=== PATIENT | male | born 1940 | race Caucasian/White ===

== ENCOUNTER 2016-05-20 11:27 | Emergency (ER) | payer OTHER ==
--- NOTE | 2016-05-20 12:20 | DIAGNOSTIC IMAGING REPORT ---
PROCEDURE: XR WRIST MIN 3 VIEWS - RIGHT INDICATION: TRAUMA/INJURY TECHNIQUE: Five views. COMPARISON: None. FINDINGS: Findings suggest post-traumatic change of the right distal radius and ulna. 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 Findings suggest avulsion fractures (4 mm, 1 mm) of the dorsum of the triquetrum. IMPRESSION: 1. 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 2. Findings suggest acute avulsion fractures of the dorsal triquetrum (best seen on lateral view).
--- NOTE | 2016-05-20 12:23 | ED CLINICAL REPORT ---
Clinical Report - Physicians/Mid Levels [facility] [address] [place] [place] [address] 05/20/2016 11:30 Patient: MARÍA DOTSON Time Seen: 11:56 May 20 2016. Arrived- By private vehicle. Historian- patient. HISTORY OF PRESENT ILLNESS Chief Complaint: Injury to the right wrist. The injury happened yesterday. The patient sustained a direct blow. Occurred at home. Pain is not mild. Patient denies injury to the head. ( A trip and fall mechanism yesterday, with pain to the right wrist. Reports difficulty with movement of the hand. It was possible fracture to the area, however never had it checked out. Reports taking pain meds for chornic pain. NO paresthesias, no laceratin.). REVIEW OF SYSTEMS No tingling or skin laceration. All systems otherwise negative, except as recorded above. PAST HISTORY The patient's dominant hand is the right. He has had a prior injury once to the same area (possible prior fx.). Problems: Chronic Back Pain. Hypercholesterolemia. Hypertension. Medications: Atorvastatin Calcium Oral. Lisinopril Oral. Morphine Sulfate Oral (Tablet 15 mg), 2x a day as needed. Oxycodone-Acetaminophen Oral. Allergies: No Known Drug Allergy. SOCIAL HISTORY Smoker- current status unknown. No drug use. ADDITIONAL NOTES The nursing notes have been reviewed. PHYSICAL EXAM Vital Signs: 05/20/2016 11:48 BP: 157/97. HR: 66. RR: 20. O2 saturation: 99%. Temp: 98.1 F. Pain level now: 6/10. Head: Head atraumatic. ENT: Ears normal. Nose normal. Neck: Normal inspection. CVS: Normal heart rate and rhythm. Heart sounds normal. Respiratory: No respiratory distress. Skin: Skin warm. Skin intact. Extremities: Anatomic snuffbox, right arm: No erythema or tenderness. Right distal radius: moderate swelling. No tenderness, abrasion or puncture wound. Right distal ulna: mild tenderness and swelling. Limited ROM at the wrist (diminished ulnar deviation). Neurovascular intact distally. Right hand. No tenderness or swelling. Bony tenderness present. No signs of infection present. No hand injury. Neuro, Vascular and Tendons: Vascular status intact. Motor intact. Neuro: Oriented X 3. LABS, X-RAYS, AND EKG Rt Wrist X-ray: (IMPRESSION: 1. 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 2. Findings suggest acute avulsion fractures of the dorsal triquetrum (best seen on lateral view). Electronically Final signed by:Cedric Kline MD 05/20/2016 12:19:16 PM). PROGRESS AND PROCEDURES Splint Application: Time: 12:45 May 20 2016. Fiberglass sugar tong splint applied to right hand. Splint applied by nurse with direct supervision by me. Follow-up recommended within 5 days. Course of Care: concern for acute fracture, patient splinted, good distal neurovascular. His pain essentially on ulnar on the dorsal aspect, S sign on the radial aspect on the dorsal side, which he reports is chronic. Pain with ulnar deviation. Patient stable, no laceration or underlying ecchymosis. Patient is stable. Physical exam findings are improved. Symptoms better. Patient/family counseled. Disposition: Discharged. CLINICAL IMPRESSION Fracture of the right ulna INSTRUCTIONS Limit use of your right hand for seven. ([facility]: [phone]). Your Current Medications: CONTINUE TAKING THE FOLLOWING MEDICATIONS: Atorvastatin Calcium Oral. Lisinopril Oral. Morphine Sulfate Oral : Tablet 15 mg, 2x a day, prn. Oxycodone-Acetaminophen Oral. OTC Medications: Take OTC medications according to label instructions. Available over the counter. Acetaminophen (available over the counter): take according to label instructions. Motrin (available over the counter): take according to label instructions. Follow-up: Follow up with your doctor in three days. (Electronically signed by Niesha Hawkins P.A.-C 05/20/2016 13:01)
--- NOTE | 2016-05-20 12:23 | ED NURSING NOTES ---
Clinical Report - Nurses [place] [address] [address] 05/20/2016 11:30 Patient: MARÍA DOTSON TRIAGE Acuity: LEVEL 3. Chief Complaint: INJURY TO RIGHT WRIST. Alert. No acute distress. KEYONA COMA SCORE: [place] Coma Scale: 15- eyes open spontaneously (4); best verbal response- oriented x 4 (5); best motor response- obeys commands (6). --11:54 Jeana Durham R.N. 11:48 05/20/16. BP: 157/97. HR: 66. RR: 20. O2 saturation: 99% on room air. Temp: 98.1 F. Pain level now: 10/06. --11:54 Jeana Durham R.N. Weight: 68.9 kg stated. Height/Length: 67 inches Per Patient. BMI: 23.8. --11:53 Jeana Durham R.N. Medications Oxycodone-Acetaminophen Oral. --11:51 Jeana Durham R.N. Morphine Sulfate Oral (Tablet 15 mg), 2x a day as needed. --11:51 Jeana Durham R.N. Lisinopril Oral. --11:51 Jeana Durham R.N. Atorvastatin Calcium Oral. --11:51 Jeana Durham R.N. Medication/allergy information source: the patient. --11:54 Jeana Durham R.N. Allergies No Known Drug Allergy. --11:52 Jeana Durham R.N. History Arrived by private vehicle. Historian: patient. Accompanied by spouse. Primary physician (Jono). This occurred yesterday. Mechanism of injury: fell; tripped. SOCIAL HX: Current every day heavy tobacco smoker (cigarette)- less than 1 pack per day. No alcohol use or drug use. NUTRITIONAL RISK ASSESSMENT: The nutritional risk assessment revealed no deficiencies. FUNCTIONAL ASSESSMENT: Functional assessment: no impairments noted. LEARNING NEEDS ASSESSMENT: The learning needs assessment revealed no barriers. FALL RISK ASSESSMENT: Fall risk assessment completed. Risk factors identified include patient age greater than 65 years and history of fall. Fall interventions initiated. Patient placed on stretcher. Brakes on Bed in low position. SKIN INTEGRITY ASSESSMENT: Skin integrity risk assessment completed. No skin integrity risk identified. --11:54 Jeana Durham R.N. PROBLEMS: Chronic Back Pain. Hypertension. Hypercholesterolemia. --11:52 Jeana Durham R.N. Assessment GENERAL / NEURO / PSYCH: Alert. Oriented X 4. Appears in no acute distress. Patient appears calm and cooperative. RESPIRATORY: Respirations not labored. CVS: Capillary refill less than 2 seconds. SKIN: Mucous membranes are pink. Skin is warm and dry. --11:54 Jeana Durham R.N. Interventions ID band on patient. To treatment room. --11:54 Jeana Durham R.N. PHYSICAL ASSESSMENT 11:54 05/20/16. Ambulatory to room. GENERAL / NEURO / PSYCH: Oriented X 4. Alert. Appears in no acute distress. EXTREMITIES: Capillary refill is less than 2 seconds in the extremities. Extremity pulses are within normal limits. Neuro-vascular status intact to the extremity. Right wrist: tenderness, swelling and erythema. SKIN: Skin intact. Skin is warm and dry. --11:54 Jeana Durham R.N. NURSING PROGRESS NOTES 11:54 05/20/16. Two patient identifiers checked. Call light placed in reach. Side rails up x 1. Bed placed in lowest position. Brakes of bed on. Patient ready for evaluation- chart flagged and ED physician notified. --11:55 Jeana Durham R.N. 12:38 05/20/16. Sugar tong fiberglass upper extremity splint applied to right arm and elbow by nurse. Distal pulses intact, sensation intact and motor within normal limits. --12:38 Whitney Sy R.N. 12:38 05/20/16. Sling applied to right arm. --12:38 Whitney Sy R.N. DISPOSITION / DISCHARGE Departure time: 1244May 20 2016. Condition at departure: improved and stable. No learning barriers present. Discharge instructions provided and reviewed with the patient. Reviewed splint care instructions. Activity restrictions (minimal use of injured extremity) reviewed. Follow up contact number Pb Jones. Patient verbalized understanding. Written instructions provided in Trinidadian. The patient was discharged by the physician residential real estate assistant. He was discharged home and accompanied by spouse. He left the Emergency Department ambulatory and via private vehicle. Spouse driving. --14:07 Jeana Durham R.N. Locked/Released at 05/20/2016 14:07 by Jeana Durham R.N.
--- NOTE | 2016-05-20 12:23 | ED NURSING NOTES ---
Clinical Report - Nurses [place] [address] [place] [address] 05/20/2016 11:30 Patient: MARÍA DOTSON TRIAGE Acuity: LEVEL 3. Chief Complaint: INJURY TO RIGHT WRIST. Alert. No acute distress. KEYONA COMA SCORE: [place] Coma Scale: 15- eyes open spontaneously (4); best verbal response- oriented x 4 (5); best motor response- obeys commands (6). --11:54 Jeana Durham R.N. 11:48 05/20/16. BP: 157/97. HR: 66. RR: 20. O2 saturation: 99% on room air. Temp: 98.1 F. Pain level now: 10/06. --11:54 Jeana Durham R.N. Weight: 68.9 kg stated. Height/Length: 67 inches Per Patient. BMI: 23.8. --11:53 Jeana Durham R.N. Medications Oxycodone-Acetaminophen Oral. --11:51 Jeana Durham R.N. Morphine Sulfate Oral (Tablet 15 mg), 2x a day as needed. --11:51 Jeana Durham R.N. Lisinopril Oral. --11:51 Jeana Durham R.N. Atorvastatin Calcium Oral. --11:51 Jeana Durham R.N. Medication/allergy information source: the patient. --11:54 Jeana Durham R.N. Allergies No Known Drug Allergy. --11:52 Jeana Durham R.N. History Arrived by private vehicle. Historian: patient. Accompanied by spouse. Primary physician (Jono). This occurred yesterday. Mechanism of injury: fell; tripped. SOCIAL HX: Current every day heavy tobacco smoker (cigarette)- less than 1 pack per day. No alcohol use or drug use. NUTRITIONAL RISK ASSESSMENT: The nutritional risk assessment revealed no deficiencies. FUNCTIONAL ASSESSMENT: Functional assessment: no impairments noted. LEARNING NEEDS ASSESSMENT: The learning needs assessment revealed no barriers. FALL RISK ASSESSMENT: Fall risk assessment completed. Risk factors identified include patient age greater than 65 years and history of fall. Fall interventions initiated. Patient placed on stretcher. Brakes on Bed in low position. SKIN INTEGRITY ASSESSMENT: Skin integrity risk assessment completed. No skin integrity risk identified. --11:54 Jeana Durham R.N. PROBLEMS: Chronic Back Pain. Hypertension. Hypercholesterolemia. --11:52 Jeana Durham R.N. Assessment GENERAL / NEURO / PSYCH: Alert. Oriented X 4. Appears in no acute distress. Patient appears calm and cooperative. RESPIRATORY: Respirations not labored. CVS: Capillary refill less than 2 seconds. SKIN: Mucous membranes are pink. Skin is warm and dry. --11:54 Jeana Durham R.N. Interventions ID band on patient. To treatment room. --11:54 Jeana Durham R.N. PHYSICAL ASSESSMENT 11:54 05/20/16. Ambulatory to room. GENERAL / NEURO / PSYCH: Oriented X 4. Alert. Appears in no acute distress. EXTREMITIES: Capillary refill is less than 2 seconds in the extremities. Extremity pulses are within normal limits. Neuro-vascular status intact to the extremity. Right wrist: tenderness, swelling and erythema. SKIN: Skin intact. Skin is warm and dry. --11:54 Jeana Durham R.N. NURSING PROGRESS NOTES 11:54 05/20/16. Two patient identifiers checked. Call light placed in reach. Side rails up x 1. Bed placed in lowest position. Brakes of bed on. Patient ready for evaluation- chart flagged and ED physician notified. --11:55 Jeana Durham R.N. 12:38 05/20/16. Sugar tong fiberglass upper extremity splint applied to right arm and elbow by nurse. Distal pulses intact, sensation intact and motor within normal limits. --12:38 Whitney Sy R.N. 12:38 05/20/16. Sling applied to right arm. --12:38 Whitney Sy R.N. DISPOSITION / DISCHARGE Departure time: 1244May 20 2016. Condition at departure: improved and stable. No learning barriers present. Discharge instructions provided and reviewed with the patient. Reviewed splint care instructions. Activity restrictions (minimal use of injured extremity) reviewed. Follow up contact number Pb Jones. Patient verbalized understanding. Written instructions provided in Prydeinig. The patient was discharged by the physician retail assistant. He was discharged home and accompanied by spouse. He left the Emergency Department ambulatory and via private vehicle. Spouse driving. --14:07 Jeana Durham R.N. Locked/Released at 05/20/2016 14:07 by Jeana Durham R.N.
--- NOTE | 2016-05-20 12:23 | ED ORDER SUMMARY ---
..... Patient: MARÍA DOTSON OrderSheet [facility] VisitID: [id number] [place] [address] 76y, M Registration Date/Time: 05/20/2016 ORDER SHEET Weight: 68.9 kg (stated) Allergies: No Known Drug Allergy GENERAL ORDERS: Wrist 3 or 4V Right Urgent (11:55 05/20/2016 ALANinterer R.N. per protocol) (Ack 11:57 Vishal) (12:08 Seymour) Splint (UE) (Right) (Sugar Tong) (12:24 05/20/2016 Kym Wellington) (Ack 12:31 Vishal) (12:45 MWinterer R.N.) MEDICATION ORDERS: IV FLUIDS: ORDER SHEET NOTES: [Electronically signed by Niesha Hawkins P.A.-C (13:01 05/20/2016)] [Electronically signed by Jeana Durham R.N. (14:07 05/20/2016)] [Electronically locked/signed by Jeana Durham R.N. (14:05/20/2016)]
--- NOTE | 2016-05-20 12:23 | ED ORDER SUMMARY ---
..... Patient: MARÍA DOTSON OrderSheet [facility] VisitID: [id number] [place] [address] 76y, M Registration Date/Time: 05/20/2016 ORDER SHEET Weight: 68.9 kg (stated) Allergies: No Known Drug Allergy GENERAL ORDERS: Wrist 3 or 4V Right Urgent (11:55 05/20/2016 ALANinterer R.N. per protocol) (Ack 11:57 Vishal) (12:08 Seymour) Splint (UE) (Right) (Sugar Tong) (12:24 05/20/2016 Kym Wellington) (Ack 12:31 Vishal) (12:45 MWinterer R.N.) MEDICATION ORDERS: IV FLUIDS: ORDER SHEET NOTES: [Electronically signed by Niesha Hawkins P.A.-C (13:01 05/20/2016)] [Electronically signed by Jeana Durham R.N. (14:07 05/20/2016)] [Electronically locked/signed by Jeana Durham R.N. (14:05/20/2016)]
--- NOTE | 2016-05-20 12:23 | ED CLINICAL REPORT ---
Clinical Report - Physicians/Mid Levels [facility] [address] [place] [address] 05/20/2016 11:30 Patient: MARÍA DOTSON Time Seen: 11:56 May 20 2016. Arrived- By private vehicle. Historian- patient. HISTORY OF PRESENT ILLNESS Chief Complaint: Injury to the right wrist. The injury happened yesterday. The patient sustained a direct blow. Occurred at home. Pain is not mild. Patient denies injury to the head. ( A trip and fall mechanism yesterday, with pain to the right wrist. Reports difficulty with movement of the hand. It was possible fracture to the area, however never had it checked out. Reports taking pain meds for chornic pain. NO paresthesias, no laceratin.). REVIEW OF SYSTEMS No tingling or skin laceration. All systems otherwise negative, except as recorded above. PAST HISTORY The patient's dominant hand is the right. He has had a prior injury once to the same area (possible prior fx.). Problems: Chronic Back Pain. Hypercholesterolemia. Hypertension. Medications: Atorvastatin Calcium Oral. Lisinopril Oral. Morphine Sulfate Oral (Tablet 15 mg), 2x a day as needed. Oxycodone-Acetaminophen Oral. Allergies: No Known Drug Allergy. SOCIAL HISTORY Smoker- current status unknown. No drug use. ADDITIONAL NOTES The nursing notes have been reviewed. PHYSICAL EXAM Vital Signs: 05/20/2016 11:48 BP: 157/97. HR: 66. RR: 20. O2 saturation: 99%. Temp: 98.1 F. Pain level now: 6/10. Head: Head atraumatic. ENT: Ears normal. Nose normal. Neck: Normal inspection. CVS: Normal heart rate and rhythm. Heart sounds normal. Respiratory: No respiratory distress. Skin: Skin warm. Skin intact. Extremities: Anatomic snuffbox, right arm: No erythema or tenderness. Right distal radius: moderate swelling. No tenderness, abrasion or puncture wound. Right distal ulna: mild tenderness and swelling. Limited ROM at the wrist (diminished ulnar deviation). Neurovascular intact distally. Right hand. No tenderness or swelling. Bony tenderness present. No signs of infection present. No hand injury. Neuro, Vascular and Tendons: Vascular status intact. Motor intact. Neuro: Oriented X 3. LABS, X-RAYS, AND EKG Rt Wrist X-ray: (IMPRESSION: 1. 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 2. Findings suggest acute avulsion fractures of the dorsal triquetrum (best seen on lateral view). Electronically Final signed by:Cedric Kline MD 05/20/2016 12:19:16 PM). PROGRESS AND PROCEDURES Splint Application: Time: 12:45 May 20 2016. Fiberglass sugar tong splint applied to right hand. Splint applied by nurse with direct supervision by me. Follow-up recommended within 5 days. Course of Care: concern for acute fracture, patient splinted, good distal neurovascular. His pain essentially on ulnar on the dorsal aspect, S sign on the radial aspect on the dorsal side, which he reports is chronic. Pain with ulnar deviation. Patient stable, no laceration or underlying ecchymosis. Patient is stable. Physical exam findings are improved. Symptoms better. Patient/family counseled. Disposition: Discharged. CLINICAL IMPRESSION Fracture of the right ulna INSTRUCTIONS Limit use of your right hand for seven. ([facility]: [phone]). Your Current Medications: CONTINUE TAKING THE FOLLOWING MEDICATIONS: Atorvastatin Calcium Oral. Lisinopril Oral. Morphine Sulfate Oral : Tablet 15 mg, 2x a day, prn. Oxycodone-Acetaminophen Oral. OTC Medications: Take OTC medications according to label instructions. Available over the counter. Acetaminophen (available over the counter): take according to label instructions. Motrin (available over the counter): take according to label instructions. Follow-up: Follow up with your doctor in three days. (Electronically signed by Niesha Hawkins P.A.-C 05/20/2016 13:01)
--- NOTE | 2016-05-20 14:07 | ED MAR SUMMARY ---
..... Medication Administration Record [facility] [address], [place] [id number] Patient: MARÍA DOTSON Visit ID: [id number] 76y, M Weight: 68.9 kg Height/Length: 67 in BMI: 23.8 ALLERGIES: No Known Drug Allergy
--- NOTE | 2016-05-20 14:07 | ED MED RECONCILIATION SUMMARY ---
Patient: MARÍA DOTSON Medication Reconciliation Report [facility] VisitID: [id number] [address] [place] [address] 76y, M Registration Date/Time: 05/20/2016 Weight: 68.9 kg Height/Length: 67 in. BMI: 23.8 ALLERGIES: No Known Drug Allergy The patient's Home Medications are listed below: CONTINUE TAKING THE FOLLOWING MEDICATIONS: Atorvastatin Calcium Oral Lisinopril Oral Morphine Sulfate Oral (15 mg), 2x a day Oxycodone-Acetaminophen Oral The source(s) of the original Home Medication information: patient The following Medications were given to the patient in the Emergency Department: None. The following Medications were prescribed to the patient: Take OTC medications according to label instructions. Available over the counter. -- Niesha Hawkins, P.A.-C Acetaminophen (available over the counter): take according to label instructions. -- Niesha Hawkins, P.A.-C Motrin (available over the counter): take according to label instructions. -- Niesha Hawkins, P.A.-C
--- NOTE | 2016-05-20 14:07 | ED DISCHARGE INSTRUCTIONS ---
Patient: MARÍA DOTSON General Instructions [facility] VisitID: [id number] [place] [address] 76y, M Registration Date/Time: 05/20/2016 Fracture of the right ulna INSTRUCTIONS Limit use of your right hand for seven. ([facility]: [phone]). Your Current Medications: CONTINUE TAKING THE FOLLOWING MEDICATIONS: Atorvastatin Calcium Oral. Lisinopril Oral. Morphine Sulfate Oral : Tablet 15 mg, 2x a day, prn. Oxycodone-Acetaminophen Oral. OTC Medications: Take OTC medications according to label instructions. Available over the counter. Acetaminophen (available over the counter): take according to label instructions. Motrin (available over the counter): take according to label instructions. Follow-up: Follow up with your doctor in three days. ADDITIONAL INFORMATION Fracture: Wrist (General) You have a fracture (break) of a bone in your wrist. This may be a small crack or chip in the bone; or a major break with the broken parts pushed out of position. Wrist fractures are treated with a splint or cast. They take about 4-6 weeks to heal. Severe injuries may require surgery. Home Care: Keep your arm elevated to reduce pain and swelling. When sitting or lying down elevate your arm above the level of your heart. You can do this by placing your arm on a pillow that rests on your chest or on a pillow at your side. This is most important during the first 48 hours after injury. Apply an ice pack (ice cubes in a plastic bag, wrapped in a towel) over the injured area for 20 minutes every 1-2 hours the first day. You can place the ice pack inside the sling and directly over the splint/cast. Continue with ice packs 3-4 times a day for the next two days, then as needed for the relief of pain and swelling. Keep the cast/splint completely dry at all times. Bathe with your cast/splint out of the water, protected with a large plastic bag, rubber-banded at the top end. If a fiberglass splint/cast gets wet, you can dry it with a hair-dryer. You may use acetaminophen (Tylenol) or ibuprofen (Motrin, Advil) to control pain, unless another pain medicine was prescribed. [NOTE: If you have chronic liver or kidney disease or ever had a stomach ulcer or GI bleeding, talk with your doctor before using these medicines.] Follow Up with your doctor in one week, or as advised by our staff, to be sure the bone is healing properly. If a splint was applied, it will be changed to a cast during your follow-up visit. [NOTE: Any X-rays taken will be reviewed by a radiologist. You will be notified if there are any new findings that may affect your care.] Get Prompt Medical Attention if any of the following occur: The plaster cast or splint becomes wet or soft The fiberglass cast or splint remains wet for more than 24 hours Increased tightness or pain under the cast or splint Fingers become swollen, cold, blue, numb or tingly You have been given the following additional information: Fracture, Wrist [General] Limit use of your right hand for seven. (Electronically signed by Niesha Hawkins P.A.-C 05/20/2016 13:01)
--- NOTE | 2016-05-20 14:07 | ED MED RECONCILIATION SUMMARY ---
Patient: MARÍA DOTSON Medication Reconciliation Report [facility] VisitID: [id number] [address] [place] [address] 76y, M Registration Date/Time: 05/20/2016 Weight: 68.9 kg Height/Length: 67 in. BMI: 23.8 ALLERGIES: No Known Drug Allergy The patient's Home Medications are listed below: CONTINUE TAKING THE FOLLOWING MEDICATIONS: Atorvastatin Calcium Oral Lisinopril Oral Morphine Sulfate Oral (15 mg), 2x a day Oxycodone-Acetaminophen Oral The source(s) of the original Home Medication information: patient The following Medications were given to the patient in the Emergency Department: None. The following Medications were prescribed to the patient: Take OTC medications according to label instructions. Available over the counter. -- Niesha Hawkins, P.A.-C Acetaminophen (available over the counter): take according to label instructions. -- Niesha Hawkins, P.A.-C Motrin (available over the counter): take according to label instructions. -- Niesha Hawkins, P.A.-C
--- NOTE | 2016-05-20 14:07 | ED MAR SUMMARY ---
..... Medication Administration Record [facility] [address] [place], [place] [id number] Patient: MARÍA DOTSON Visit ID: [id number] 76y, M Weight: 68.9 kg Height/Length: 67 in BMI: 23.8 ALLERGIES: No Known Drug Allergy
== END 2016-05-20 12:45 | disposition home or self-care (01) ==
LOC: ED SRH 11:27
DX: S52.201A Unspecified fracture of shaft of right ulna, initial encounter for closed fracture (principal); W01.0XXA Fall on same level from slipping, tripping and stumbling without subsequent striking against object, initial encounter; Y93.9 Activity, unspecified; Y92.009 Unspecified place in unspecified non-institutional (private) residence as the place of occurrence of the external cause; Y99.9 Unspecified external cause status; I10 Essential (primary) hypertension; F17.200 Nicotine dependence, unspecified, uncomplicated; Z79.899 Other long term (current) drug therapy